=== PATIENT | male | born 1985 | race Caucasian/White ===

== ENCOUNTER 2019-03-30 15:24 | Emergency (ER) | payer OTHER ==
[~2019-03-30] VITALS: Ht 172.7 cm; Wt 77.1 kg
[2019-03-30] MEDS ORDERED: MOBIC7.5 MG PO (16:39)
[2019-03-30 17:12] VITALS: BP 122/77
== END 2019-03-30 17:13 | disposition home or self-care (01) ==
LOC: M.ERS 15:24
DX: S90.31XA Contusion of right foot, initial encounter (principal); Z88.6 Allergy status to analgesic agent; W22.8XXA Striking against or struck by other objects, initial encounter; Y93.89 Activity, other specified; Y92.89 Other specified places as the place of occurrence of the external cause; Y99.8 Other external cause status

== ENCOUNTER 2019-05-21 19:46 | Emergency (ER) | payer OTHER ==
[~2019-05-21] VITALS: Ht 172.7 cm; Wt 81.7 kg
[~2019-05-21 19:46] MED LIST: MOBIC7.5 MG PO
[2019-05-21] MEDS ORDERED: LIDODERM1 EACH TOP (21:58)
[2019-05-21] MEDS ORDERED: ROBAXIN 750 MG750 MG PO (21:58)
[2019-05-21 22:07] VITALS: BP 118/76
== END 2019-05-21 22:07 | disposition home or self-care (01) ==
LOC: M.ERS 19:46
DX: S39.82XA Other specified injuries of lower back, initial encounter (principal); F17.210 Nicotine dependence, cigarettes, uncomplicated; Z88.6 Allergy status to analgesic agent; W18.39XA Other fall on same level, initial encounter; Y93.89 Activity, other specified; Y92.89 Other specified places as the place of occurrence of the external cause; Y99.8 Other external cause status